=== PATIENT | female | born 1955 ===

== ENCOUNTER → 2023-05-18 | Outpatient (CLI) | payer MEDICARE | END | disposition home or self-care (01) | LOC: Rad HDHVI 08:01 | PROVIDERS: ATTEND Internal Medicine Cardiovascular Disease | DX: E78.5 Hyperlipidemia, unspecified (principal) | CPT/HCPCS: 93306 ==

== ENCOUNTER → 2023-06-26 | Outpatient (CLI) | payer MEDICARE ==
[~2023-06-26] VITALS: Ht 160 cm; Wt 81.6 kg
== END | disposition home or self-care (01) ==
LOC: Rad HDHVI 11:34
PROVIDERS: ATTEND Internal Medicine Cardiovascular Disease
DX: E78.5 Hyperlipidemia, unspecified (principal); Z79.899 Other long term (current) drug therapy; Z95.0 Presence of cardiac pacemaker; Z82.49 Family history of ischemic heart disease and other diseases of the circulatory system
CPT/HCPCS: 78452; 93017; 96374; A9500

== ENCOUNTER 2025-06-04 08:03 | Outpatient (CLI) | payer MEDICARE | END 2025-06-04 17:00 | disposition home or self-care (01) | LOC: Rad HDHVI 08:03 | PROVIDERS: ATTEND Internal Medicine Cardiovascular Disease | DX: E78.5 Hyperlipidemia, unspecified (principal); Z95.0 Presence of cardiac pacemaker | CPT/HCPCS: 93306 ==

== ENCOUNTER 2025-06-08 08:02 | Outpatient (CLI) | payer MEDICARE ==
[~2025-06-08] VITALS: Ht 160 cm; Wt 83.5 kg
== END 2025-06-08 17:00 | disposition home or self-care (01) ==
LOC: Rad HDHVI 08:02
PROVIDERS: ATTEND Internal Medicine Cardiovascular Disease
DX: Z01.810 Encounter for preprocedural cardiovascular examination (principal); I49.3 Ventricular premature depolarization; R00.0 Tachycardia, unspecified; I10 Essential (primary) hypertension; I49.5 Sick sinus syndrome; E78.5 Hyperlipidemia, unspecified; Z82.49 Family history of ischemic heart disease and other diseases of the circulatory system; Z95.0 Presence of cardiac pacemaker
CPT/HCPCS: 78452; 93017; A9500; 96374